=== PATIENT | male | born 1960 | race African-American/Black ===

== ENCOUNTER 2020-06-27 09:06 | Inpatient (IN) | payer OTHER ==
[~2020-06-27] VITALS: Ht 185.4 cm; Wt 116.6 kg
[~2020-06-27 09:06] MED LIST: ACCUPRIL5 MG; ATENOLOL25 MG PO; ATROVENT I0.5 MG/VIA IN; BACTRIM DS1 TAB PO; BENADRYL25 MG PO; CITALOPRAM20 MG PO; FERROUS SULF325 M1 PO; HYDROCHLORO25 MG/TAB PO; MOBIC7.5 MG PO; OMEPRAZOLE20 MG PO; PERCOCET 10/31 COMBO PO; PRAVASTATIN20 MG PO; PREDNISONE10 MG PO; PROVENTIL0.083 % IN; RANITIDINE150 M1 OR; REGLAN10 MG PO; RISPERIDONE2 MG PO; TYLENOL500 MG PO; ULTRAM50 M1 PO; ULTRAM50 MG PO; VENTOLIN HFA IN
--- NOTE | 2020-06-27 09:10 | NUR ---
PATIENT TO ROOM VIA WHEELCHAIR ACCOMPANIED BY 2 GUARDS.
--- NOTE | 2020-06-27 09:36 | NUR ---
RECIEVED REPORT FROM LILIYA
[2020-06-27 10:12] LABS: HEMATOCRIT 41.4 % (39.0-50.0); HEMOGLOBIN 13.1 g/dl (14.0-18.0); IMMATURE GRANULOCYTES 0.8 % (0.0-5.0); MEAN CELL VOLUME 87.5 fL CALC (80.0-100.0); MEAN CORPUSCULAR HGB 27.7 pG CALC (26.0-32.0); MEAN CORPUSCULAR HGB CONC 31.6 g/dL CAL (32.0-36.0); NEUT# 9.04 thou/uL (1.82-7.42); RED BLOOD COUNT 4.73 mill/uL (4.70-6.10); RED CELL DISTRI WIDTH 14.2 % (11.5-15.5); URINE BILIRUBIN - DIPSTICK NEGATIVE (NEGATIVE); URINE BLOOD DIPSTICK LARGE (NEGATIVE); URINE GLUCOSE - DIPSTICK NEGATIVE (NEGATIVE); URINE KETONE TRACE mg/dL (NEGATIVE); URINE PH 5.5 (4.5-8.0); URINE PROTEIN - DIPSTICK >=300 mg/dL (NEG-TRACE); URINE SPECIFIC GRAVITY 1.025; URINE UROBILINOGEN - DIPSTICK 0.2 E.U./dL (0.2)
[2020-06-27 10:24] LABS: URINE LEUK ESTERASE SMALL (NEGATIVE); URINE NITRITE - DIPSTICK POSITIVE (Negative)
[2020-06-27 10:25] LABS: URINE BACTERIA MODERATE hpf; URINE COLOR RED; URINE EPITHELIAL CELLS MODERATE EPI/hpf (0-FEW); URINE RBC >100 RBC/hpf (0-5)
--- NOTE | 2020-06-27 10:30 | NUR ---
BLADDER WAS SCANNED AND PT TOLERATED WELL. 63 ML NOTED AND MD NOTIFED. IRRIGATION OF BLADDER ORDERED.
[2020-06-27 10:32] LABS: ALBUMIN 3.5 g/dL (3.2-5.0); BILIRUBIN, TOTAL 0.6 mg/dL (0.0-1.4); CREATININE 1.6 mg/dL (0.7-1.3); POTASSIUM 4.3 mmol/l (3.5-5.1); TOTAL PROTEIN 6.2 g/dL (6.3-8.2)
--- NOTE | 2020-06-27 11:39 | NUR ---
BLADDER IRRIGATED WITH 210 ML OF FLUIDING USING GENTAL PUMPING MOTION. PT TOLERATED WELL. LIGHT RED URINE NOTED TO START DRAINING FROM MCCABE VERY SLOWLY. PT STATES HAVING SLIGHT PRESSURE. TIME WILL BE GIVIN FOR DRAINAGE. NOTIFIED.
[2020-06-27] MEDS ORDERED: CORRECTOL100 MG PO (11:54)
[2020-06-27] MEDS ORDERED: CEPHALEXIN500 M1 PO (11:54)
[2020-06-27] MEDS ORDERED: HYDROCO/APAP1 T10 PO (11:55)
[2020-06-27] MEDS ORDERED: VENTOLIN HF1 IN (11:55)
--- NOTE | 2020-06-27 11:56 | NUR ---
CHECKED FOR DRAINAGE, CONTINUES TO BE UNCHANGED. ATTEMPTED FOR SECOND ROUND OF IRRIGATION WITH AN ADDITIONAL 70 ML BLADDER SCANNER USED. MD AT BEDSIDE AND INSTRUCTED FOR ANOTHER MCCABE INSERTION PER UROLOGY ORDERS
--- NOTE | 2020-06-27 12:50 | NUR ---
PT RESTING ON STRETCER WATCHING TV WITH GAURDS AT BEDSIDE. CALL LIGHT WITHIN REACH. NO URINE CONTINUES TO BE NOTED IN MCCABE BAG
--- NOTE | 2020-06-27 13:30 | NUR ---
PT RESTING WATCHING TV, IV FLUIDS FLOWING PATENTLY
--- NOTE | 2020-06-27 14:27 | NUR ---
NOTIFIED DR. HASKINS RE: PT BP 138/90 AND P- 130. JONAS DRAINAGE IS RED FLUID. ALSO NO URINE OUTPUT SINCE THEY CHANGE HIS MCCABE IN ER. ORDERS RECEIVED.
--- NOTE | 2020-06-27 14:30 | NUR ---
PT RESTING WITH EYES CLOSED AND GAURDS AT BEDSIDE
--- NOTE | 2020-06-27 15:20 | NUR ---
PT TRANSPORTED TO MED SURG STABLE AND IN NO DISTRESS BY W/C WITH MILAGROS AT BEDSIDE. CARE ASSUMED TO NURSE IN MED SURG
[2020-06-27 16:02] VITALS: BP 138/90
--- NOTE | 2020-06-27 16:53 | NUR ---
ASSESSMENT DONE. PT IS A&O X3. PT DENIES PAIN. JONAS IN PLACE. DRESSING TO JONAS MODERATED BLODDY DRAINAGE AND CHANGE DRESSING. X2 GUARDS IN ROOM. PO FLUIDS PROVIDED. NO URINE IN MCCABE AT THIS TIME. PT DENIES ANY NEEDS AT THIS TIME. CALL LIGHT IN REACH.
--- NOTE | 2020-06-27 17:26 | NUR ---
NOTIFED DR. HASKINS RE: BLADDER SCAN 32ML OF URINE.
[2020-06-27 18:55] VITALS: BP 123/87
--- NOTE | 2020-06-27 18:55 | NUR ---
REPORT RECEIVED FROM TRACY AGUIAR. PT RESTING IN BED, NO S/S OF DISTRESS AT THIS TIME. WILL CONTINUE TO MONITOR.
--- NOTE | 2020-06-27 21:20 | NUR ---
PT RESTING IN BED, ALERT AND ORIENTED, RESPIRATIONS EVEN AND UNLABORED ON RA. LUNGS SOUND CLEAR/DIMINISHED. PEDAL PULSES ARE STRONG. PT DENIES ANY PAIN OR DISCOMFORT. PT HAS HAD NO URINE OUT PUT. BLADDER SCANNED 38ML IN BLADDER. JONAS DRAIN NOTEED TO BE FULL, 90CC EMPTIED INTO SPECIMEN CUP, JONAS FILLING BACK UP FAST WIRE ROPE SLING MAKER COULD EMPTY IT. GRADUATE USED TOTAL OF 680ML OUT OF JONAS DRAIN. MD TO BE NOTIFIED. CALL LEWIS WITHIN REACH WILL CONTINUE TO MONITOR.
--- NOTE | 2020-06-27 21:42 | NUR ---
NOTIFIED, NEW ORDERS OBTAINED AND TO BE CARRIED OUT.
--- NOTE | 2020-06-27 21:47 | NUR ---
NOTIFIED, NEW ORDERS OBTAINED AND TO BE CARRIED OUT.
--- NOTE | 2020-06-27 23:08 | NUR ---
SPOKE WITH GURINDER MCKINNON AT [facility], UPDATED ON PT CARE.
--- NOTE | 2020-06-28 01:23 | NUR ---
PT RESTING IN BED, NO S/S OF DISTRESS. PT DENIES ANY PAIN OR DISCOMFORT AT THIS TIME. 350ML EMPTIED FROM JONAS DRAIN.
[2020-06-28 01:38] VITALS: BP 134/71
--- NOTE | 2020-06-28 04:23 | NUR ---
PT RESTING IN BED, NO S/S OF DISTRESS
[2020-06-28 04:47] VITALS: BP 138/89
[2020-06-28 08:20] VITALS: BP 132/96
[2020-06-28] MEDS ORDERED: LOPRESSOR 550 MG/TAB PO (10:21)
[2020-06-28] MEDS ORDERED: PRAVASTATIN20 MG PO (10:22)
[2020-06-28] MEDS ORDERED: PREDNISONE10 MG PO (10:23)
[2020-06-28] MEDS ORDERED: SEROQUEL100 MG PO (10:23)
[2020-06-28 10:55] VITALS: BP 145/103
[2020-06-28 11:12] LABS: ANION GAP 9 (6-22 (CALC)); BUN 25 mg/dL (9-20); BUN/CREATININE RATIO 23 (12-20 (CALC)); CARBON DIOXIDE 25 mmol/l (22-30); CHLORIDE 102 mmol/l (95-108); CREATININE 1.1 mg/dL (0.7-1.3); GFR > 60 ML/MIN (>=60 (CALC)); GFR FOR AFR.AMER. > 60 ML/MIN (>=60 (CALC)); POTASSIUM 4.2 mmol/l (3.5-5.1); SODIUM 132 mmol/l (137-146)
--- NOTE | 2020-06-28 11:45 | NUR ---
Pt alert and oriented x4, Cj drainage, draining a large amt sero-sang drainage.Cj RUQ, SITE DRAINING SERO SANG DRAINAGE. APPIED ABD TO SITE. MCCABE NO DRAINAGE IN BAG. PATIENT HAS 2 DEPUTY AT BEDSIDE. ABD INCISION SITES DRY AND INTACT. WILL CONTINUE TO MONITOR FOR SAFETY
[2020-06-28 15:30] VITALS: BP 127/92
--- NOTE | 2020-06-28 16:43 | NUR ---
RECEIVED NEW ADMIT, PATIENT STATED THAT SHE HAD FALLEN LAST WEDS, AND SINCE THAN SHE HAS HAD PAIN IN HER LOWER BACK AND RIGHT LEG. SHE STATED THAT HER COULD NOT ASSIST HER AT HOME BECAUSE SHE WAS TO HEAVY FOR HIM. PATIENT STATED THAT SHE SMOKES A 1/2PK/DAY. C/O PAIN 10, STATED THAT THE MEDICATION GIVEN TO HER IN THE ER HELPED HER PAIN. PATIENT INSTRUCTED TO CALL FOR ASSISTNACE BEFORE GETTING OOB.
[2020-06-28 19:07] VITALS: BP 135/81
--- NOTE | 2020-06-28 19:59 | NUR ---
PT RESTING IN BED, ALERT AND ORIENTED RESPIRATIONS EVEN AND UNLABORED ON RA. LUNGS SOUND CLEAR. PEDAL PULSES ARE STRONG. PT REPORTS HAVING MODERATE PAIN IN HIS ABDOMEN, PT TO BE MEDICATED PER EMAR ORDERS. MCCABE IN PLACE. JONAS DRAIN IN PLACE. CALL LEWIS WITHIN REACH WILL CONTINUE TO MONITOR.
[2020-06-29] VITALS (11 sets, daily range): BP systolic 120–176; BP diastolic 70–96
--- NOTE | 2020-06-29 00:09 | NUR ---
PT RESTING IN BED. NO S/S OF DISTRESS AT THIS TIME.
--- NOTE | 2020-06-29 04:00 | NUR ---
PT RESTING IN BED, NO S/S OF DISTRESS AT THIS TIME. SAFETY PRECAUTIONS IN PLACE. WILL CONTINUE TO MONITOR.
[2020-06-29 05:51] LABS: ANION GAP 9 (6-22 (CALC)); BUN 19 mg/dL (9-20); BUN/CREATININE RATIO 20 (12-20 (CALC)); CARBON DIOXIDE 26 mmol/l (22-30); CHLORIDE 103 mmol/l (95-108); GFR > 60 ML/MIN (>=60 (CALC)); GFR FOR AFR.AMER. > 60 ML/MIN (>=60 (CALC)); POTASSIUM 4.2 mmol/l (3.5-5.1); SODIUM 134 mmol/l (137-146)
--- NOTE | 2020-06-29 07:06 | NUR ---
PT RESTING IN BED, NO SIGNS OF DISTRESS NOTED, RESP EVEN AND UNLABORED. INFORMED PT THAT OR TO ARRIVE TO TRANSPORT PT SHORTLY, PT VERBALIZED UNDERSTANDING. SCD'S IN PLACE, NOTED MCCABE BAG DRAINING FROM PENIS, THEN ANOTHER BAG DRAINING DARK URINE FROM JONAS DRAIN, GUARDS X2 AT BEDSIDE, DISCUSSED POC, ASSESSMENT COMPLETED, CALL LIGHT IN REACH,CONTINUE TO MONITOR.
--- NOTE | 2020-06-29 07:30 | NUR ---
PT TAKEN DOWN TO OR BY ASIA MOLINA VIA STRETCHER ACCOMPANIED BY GUARDS X2, CONTINUE TO MONITOR.
--- NOTE | 2020-06-29 10:05 | NUR ---
PT ARRIVED TO MS2 VIA STRETCHER ACCOMPANIED BY OR NURSE. PT REQUESTING TO USE THE BATHROOM, PT HAD A BM AMBULATED WITH ASSISTANCE. RETURNED TO BED, JONAS DRAINED OF 100CC OF BLOODY DRAINAGE. MCCABE DRAINING TO GRAVITY, NEW IV TO JOAQUÍN NS INFUSING. SCD'S IN PLACE. PT TOLERATING WATER. MEDICATED PER MAR. CALL LIGHT IN REACH,CONTINUE TO MONITOR, GUARDS X2 AT BEDSIDE.
--- NOTE | 2020-06-29 12:48 | NUR ---
NO OUTPUT FROM MCCABE SINCE ARRIVAL TO UNIT; BLADDER SCAN REPORTS 68ML. 40CC OF SEROSANGUINOUS DRAINAGE EMPTIED FROM JONAS DRAIN AND DRESSING OVER JONAS SITE SATURATED WITH SEROSANGUINOUS DRAINAGE. DRESSING REPLACED AND MCCABE IRRIGATED WITH 140CC OF 0.9% SODIUM CHLORIDE. IMMEDIATE AFTER FLUSH JONAS DRAIN QUICKLY FILLED WITH 85 CC OF SEROSANGUINOUS FLUID; 20 CC OF RETURN IN MCCABE CATHETER. PT TOLERATED WELL.
--- NOTE | 2020-06-29 12:57 | NUR ---
SPOKE WITH DR. MANCINI REGARDING JONAS DRAINAGE, AWARE STATES FOR SUCTION TO JONAS BE A MINIMAL, PT TO SIT IN CHAIR OR SIT UP IN BED, AND IT HELPS TO ELEVATE JONAS. DISCUSSED WITH PT WHO VERBALIZED UNDERSTANDING. MCCABE REMAINS EMPTY, JONAS WITH MINIMAL SUCTION. CALL LIGHT IN REACH,CONTINUE TO MONITOR.
--- NOTE | 2020-06-29 16:00 | NUR ---
PT RESTING IN BED, NO SIGNS OF DISTRESS NOTED, RESP EVEN AND UNLABORED. NO OUTPUT IN MCCABE, REMOVED 300CC FROM JONAS DRAIN. PT MEDICATED FOR PAIN, CALL LIGHT IN REACH, CONTINUE TO MONITOR.
--- NOTE | 2020-06-29 18:40 | NUR ---
PT C/O PAIN INFORMED MD TRANSITIONAL STUDIES INSTRUCTOR, RECEIVED 1X ORDER FOR MORPHINE, AWAITING PHARMACY TO PROFILE, CALL LIGHT IN REACH,CONTINUE TO MONITOR.
--- NOTE | 2020-06-29 20:55 | NUR ---
ONE GUARD AT BEDSIDE AT THIS TIME. 2ND GUARD OFF UNIT FLOOR. PT IS MEDICATED ORDERS PROVIDE AT THIS TIME. MEDICATED W/SEROQUIL ORDERS PROVIDE AND PER PT REQUEST. SMALL AMOUNT OF BLOODY DRAINAGE TO MCCABE CATHETER COLLECTION BAG. CATHETER LEG STRAP IS OFF THE LEG, WILL ATTEMPT TO REPLACE WITH NEW STRAP. SMALL AMOUNT OF BLOODY DISCHARGE FROM INSERTION SITE OF CATHETER ON PENIS. JONAS DRAIN BULB EMPTIED OF 300CC OF PINK URINE. BULB RETURNED TO 25% OF SUCTION. WILL CONTINUE TO MONITOR FOR OUTPUT. PT IS SITTING UPRIGHT IN BED. LEFT WITH ONE GUARD AT BEDSIDE.
--- NOTE | 2020-06-29 23:43 | NUR ---
GUARDS CALLED AND REPORTED THAT HIS MCCABE CATHETER AND JONAS DRAIN WERE LEAKING. UPON ENTERING ROOM, PT WAS FOUND IN BED AND GUARDS AT BEDSIDE. BLOODY URINE FOUND ALL OVER THE FLOOR NEXT TO THE BED AND LEADING TO RESTROOM. MYSELF AND WORSHIP PASTOR CLEANED BEST WE COULD AND CALLED HOUSEKEEPING. EMPTIED JONAS BULB OF ANY REMAINING DRAINAGE APPEARING URINE W/ORANGE TINGE. SMALL AMOUNT OF BLOODY DRAINAGE IN MCCABE CATH BAG AND CLAMP WAS UNDONE.
--- NOTE | 2020-06-30 00:35 | NUR ---
DRESSING TO JONAS DRAIN WAS SATURATED, REMOVED DRESSING AND CLEAN DRESSING APPLIED. DRAINAGE BIO BAG ATTACHED TO JPDRAIN TO COLLECT THE AMOUNT OF URINE COMING FROM JONAS DRAIN. NEW MCCABE STRAP PLACED AND BAG IS CLAMPED CLOSED AT THIS TIME. WILL CONTINUE TO MONITOR. ASSISTED PT W/NEW DRY GOWN, ICE WATER PROVIDED. GUARDS X2 AT BEDSIDE.
--- NOTE | 2020-06-30 03:38 | NUR ---
PT V/S ASSESSED AND JONAS DRAIN EMPTIED OF 400CC OF BLOODY URINE. MINIMAL AMOUNT (UNMEASURABLE) BLOODY DRAINAGE IN MCCABE OUTPUT BAG. GUARDS 2X AT BEDSIDE. PT DENIES ANY OTHER NEEDS AND WAS SLEEPING WE ENTERED.
[2020-06-30 04:20] VITALS: BP 131/85
[2020-06-30 05:46] LABS: HEMATOCRIT 36.2 % (39.0-50.0); MEAN CORPUSCULAR HGB 27.6 pG CALC (26.0-32.0); MEAN CORPUSCULAR HGB CONC 30.7 g/dL CAL (32.0-36.0); RED BLOOD COUNT 4.02 mill/uL (4.70-6.10); RED CELL DISTRI WIDTH 14.4 % (11.5-15.5)
[2020-06-30 06:03] LABS: HEMOGLOBIN 11.1 g/dl (14.0-18.0)
[2020-06-30 06:12] LABS: ANION GAP 11 (6-22 (CALC)); BUN 23 mg/dL (9-20); BUN/CREATININE RATIO 18 (12-20 (CALC)); CARBON DIOXIDE 27 mmol/l (22-30); CHLORIDE 100 mmol/l (95-108); CREATININE 1.3 mg/dL (0.7-1.3); GFR 56 ML/MIN (>=60 (CALC)); GFR FOR AFR.AMER. > 60 ML/MIN (>=60 (CALC)); MAGNESIUM 2.3 mg/dL (1.6-2.3); POTASSIUM 4.4 mmol/l (3.5-5.1); SODIUM 133 mmol/l (137-146)
--- NOTE | 2020-06-30 06:21 | NUR ---
ONE GUARD IS AT BEDSIDE. JONAS DRAIN EMPTIED OF 350CC OF PEACH COLORED DRAINAGE. PT MEDICATED FOR PAIN 6/10 ON PAIN SCALE.
--- NOTE | 2020-06-30 07:20 | NUR ---
REPORT RECEIVED FROM TRACY NARVAEZ. PT RESTING IN BED SEMI FOWLERS WITH GUARDS AT BEDSIDE AND FEET SHACKLED TOGETHER. ALERT AND ORIENTED WITH FLAT AFFECT. DENIES PAIN, BUT C/O LOWER ABDOMINAL TENDERNESS WITH PALPATION. RESPIRATIONS EVEN AND UNLABORED ON ROOM AIR. LUNGS ARE CLEAR. ABDOMEN IS DISTENDED AND FIRM; BOWEL SOUNDS ACTIVE X 4; 4 LAP SITES WITH SELINA AND DRESSING OVER JONAS INSERTION SITE; DRESSING CDI. LARGE AMOUNT OF SEROSANGUINOUS OUTPUT IN JONAS BAG. MINIMAL JERED BLOODY OUTPUT IN MCCABE CATHETER; DRAINING TO GRAVITY AND LEG STRAP INTACT TO RIGHT THIGH. TRACE PEDAL EDEMA. PLAN OF CARE REVIEWED. PT ENCOURAGED TO VERBALIZE CONCERNS. STATES UNDERSTANDING. SAFETY MEASURES IN PLACE. CALL LIGHT WITHIN REACH.
[2020-06-30 07:30] VITALS: BP 127/82
--- NOTE | 2020-06-30 08:08 | NUR ---
DR. HARDEN AT BEDSIDE FOR EVAL.
--- NOTE | 2020-06-30 11:10 | NUR ---
UPDATE GIVEN TO DR. ARANDA OVER TELEPHONE; HE MENTIONED POSSIBLE INTERVENTIONAL NEPHROLOGY. NOTIFIED DR. HARDEN AND REQUESTS HE CALL AND SPEAK WITH DR. ARANDA REGARDING POC.
--- NOTE | 2020-06-30 13:18 | NUR ---
350ML EMPTIED FROM BILE BAG ATTACHED TO JONAS TUBING; BAG WAS EXPANDED ALSO WITH AIR. DRESSING TO INSERTION SITE CHANGED; MODERATE AMOUNT OF DRAINAGE TO DRESSING. WHEN AYAZ CLEAR FLUID ACTIVELY LEAKS FROM SITE. LORTAB GIVEN FOR 8 HEADACHE. GUARDS REMAIN AT BEDSIDE. NO OUTPUT TO MCCABE.
[2020-06-30 15:08] VITALS: BP 124/83
--- NOTE | 2020-06-30 16:25 | NUR ---
DRESSING TO JONAS INSERTION SITE WITH MODERATE YELLOW DRAINAGE; DRESSING REPLACED. 225ML OF ORANGE CLEAR DRAINAGE FROM JONAS DRAIN; 15 ML OF BLOODY OUTPUT FROM MCCABE. PT TOLERATED WELL. PT AMBULATING TO BATHROOM FOR BOWEL MOVEMENTS. NO REQUESTS OR CONCERNS AT THIS TIME. 2 GUARDS REMAIN AT BEDSIDE. CALL LIGHT WITHIN REACH.
--- NOTE | 2020-06-30 16:46 | NUR ---
KEM AT [facility] UPDATED ON ORDERS FROM DR. ARANDA.
--- NOTE | 2020-06-30 18:28 | NUR ---
LORTAB GIVEN FOR 6/10 ABDOMINAL PAIN. ADDITIONAL 275ML OF ORANGE URINE EMPTIED FROM JONAS DRAIN DUE TO PYRIDIUM. MINIMAL YELLOW DRAINAGE NOTED TO DRESSING. PT UPDATED THAT HE WILL STAY ANOTHER NIGHT IN HOSPITAL FOR OBSERVATION. ALSO UPDATED ON POC TO GO TO [facility] THIS WEEK FOR PLACEMENT OF BILATERAL NEPHROSTOMY TUBES. IV SITE APPEARS HEALTHY AND FLUSHES. CALL LIGHT WITHIN REACH.
[2020-06-30 18:48] VITALS: BP 136/93
--- NOTE | 2020-06-30 20:23 | NUR ---
PT MEDICATED AND ASSESSMENT COMPLETED AT THIS TIME. JONAS DRAIN EMPTIED OF 250CC OF ORANGE CLEAR URINE. SMALL AMOUNT OF BLOODY DRAINAGE TO MCCABE BAG. INCISIONS X4 TO ABD W/SELINA APPEAR HEALTHY. DRESSING TO ABD JONAS DRAIN INSERTION SITE APPEARS CDI. WILL CONTINUE TO MONITOR. GUARDS X2 AT BEDSIDE.
[2020-06-30 23:53] VITALS: BP 119/74
--- NOTE | 2020-07-01 02:25 | NUR ---
JONAS DRAIN EMPTIED OF 350CC OF ORANGE URINE. MCCABE BAG APPEARS TO BE DRAINING SLIGHTLY MORE URINE AT THIS TIME, WILL EMPTY AND MEASURE IN AM. PT SLEEPING SOUNDLY, AWOKE TO MY VOICE, BUT QUICKLY RETURNED TO SLEEP. GUARDS X2. SMALL AMOUNT OF DRAINAGE TO ABD DRESSING, WILL REASSESS AND CHANGE NEEDED WHEN ASSESSING V/S AND LAB DRAWS AND PT IS AWAKE.
[2020-07-01 03:40] VITALS: BP 106/63
[2020-07-01 04:56] LABS: HEMATOCRIT 34.9 % (39.0-50.0); HEMOGLOBIN 10.9 g/dl (14.0-18.0); IMMATURE GRANULOCYTES 1.9 % (0.0-5.0); MEAN CELL VOLUME 89.5 fL CALC (80.0-100.0); MEAN CORPUSCULAR HGB 27.9 pG CALC (26.0-32.0); MEAN CORPUSCULAR HGB CONC 31.2 g/dL CAL (32.0-36.0); NEUT# 4.71 thou/uL (1.82-7.42); RED BLOOD COUNT 3.9 mill/uL (4.70-6.10); RED CELL DISTRI WIDTH 14.5 % (11.5-15.5)
[2020-07-01 05:21] LABS: ANION GAP 10 (6-22 (CALC)); BUN 17 mg/dL (9-20); BUN/CREATININE RATIO 17 (12-20 (CALC)); CARBON DIOXIDE 27 mmol/l (22-30); CHLORIDE 100 mmol/l (95-108); GFR > 60 ML/MIN (>=60 (CALC)); GFR FOR AFR.AMER. > 60 ML/MIN (>=60 (CALC)); POTASSIUM 4.2 mmol/l (3.5-5.1); SODIUM 133 mmol/l (137-146)
--- NOTE | 2020-07-01 05:25 | NUR ---
JOANS DRAIN EMPTIED OF 200CC OF ORANGE URINE. MCCABE CATH BAG EMPTIED OF 50CC OF BLOODY DRAINAGE. PT DENIES PAIN AT THIS TIME. GUARDS X2 AT BEDSIDE.
--- NOTE | 2020-07-01 06:10 | NUR ---
DRESSING CHANGED TO JONAS DRAIN INSERTION SITE. CLEAR FLUID IS DRAINING FROM SITE. PT TOLERATED WELL. GUARDS X2 AT BEDSIDE TALKING ABOUT THE TV NEWS.
[2020-07-01 07:21] VITALS: BP 126/83
--- NOTE | 2020-07-01 07:23 | NUR ---
REPORT RECEIVED FROM TRACY NARVAEZ. PT RESTING IN BED SEMI FOWLERS ON LEFT SIDE; ALERT AND ORIENTED X 3. GUARDS AT BEDSIDE. DENIES PAIN CURRENTLY. RESPIRATIONS EVEN AND UNLABORED ON ROOM AIR. JONAS DRAIN WITH MINIMAL DRAINAGE WELL MCCABE. LAP SITES APPEAR HEALHTY; ABDOMEN DISTENDED AND FIRM. PLAN OF CARE REVIEWED INCLUDING PLAN TO DISCHARGE BACK TO [facility]. PT ENCOURAGED TO VERBALIZE CONCERNS. STATES UNDERSTANDING. SAFETY MEASURES IN PLACE. CALL LIGHT WITHIN REACH.
--- NOTE | 2020-07-01 08:09 | NUR ---
DR. HARDEN AT BEDSIDE.
[2020-07-01 08:59] VITALS: BP 126/83
--- NOTE | 2020-07-01 09:22 | NUR ---
LINENS WITH LARGE AMOUNT OF URINE; MCCABE CATHETER AND JONAS DRAIN CHECKED FOR LEAKS; EVERYTHING INTACT AND FUNCTIONING. PT AMBULATED TO BATHROOM AND ALL LINENS CHANGED; PT WASHED HIMSELF INDEPENDENLTY WITH SUPERVISION. NOW AGAIN RESTING SEMI FOWLERS. ROCEPHIN INFUSING AT THIS TIME; IV SITE APPEARS HEALTHY AND FLUSHES.
[2020-07-01] MEDS ORDERED: KEFLEX500 MG PO (10:10)
--- NOTE | 2020-07-01 10:25 | NUR ---
SPOKE WITH RN AT [facility] MEDICAL [facility]; REPORT GIVEN.
--- NOTE | 2020-07-01 12:06 | NUR ---
JONAS DRAIN EMPTIED OF 125 ML DARK YELLOW URINE; MCCABE EMPTIED OF 20 ML BLOODY URINE. DRESSING TO JONAS INSERTION SITE REPLACED AND NOW CDI. LORTAB GIVEN FOR 6/10 ABDOMINAL PAIN. IV SITE TO JOAQUÍN REMOVED; CATHETER TIP INTACT; PT TOLERATED WELL. PT EAGER TO DISCHARGED. GUARDS ASSISTING PATIENT INTO [facility] JUMP SUIT.
--- NOTE | 2020-07-01 12:13 | NUR ---
Discharge instructions given. Patient verbalizes understanding of same. Discharged in stable condition via Wheelchair to [facility] with 2 guards and medsurg staff member. All belongings sent with pt. Updated report called to Lorenzo in [facility] medical department.
== END 2020-07-01 12:09 | disposition designated cancer center or children's hospital (05) | DRG 700 ==
LOC: ED 09:06 → ED-I 12:38 → ED 13:46 → MS2 13:47
PROVIDERS: Family Medicine; Nurse Practitioner; ADMIT Internal Medicine; ATTEND Internal Medicine
PROC: 0T2BX0Z Change Drainage Device in Bladder, External Approach (ICD-10-PCS; principal; 2020-06-27)
PROC: BT0 Imaging, Urinary System, Plain Radiography (ICD-10-PCS; 2020-06-27)
PROC: BT0B1ZZ Plain Radiography of Bladder and Urethra using Low Osmolar Contrast (ICD-10-PCS; 2020-06-29)
PROC: 0T9B70Z Drainage of Bladder with Drainage Device, Via Natural or Artificial Opening (ICD-10-PCS; 2020-06-29)
DX: N99.81 Other intraoperative complications of genitourinary system (principal); N30.81 Other cystitis with hematuria; N28.9 Disorder of kidney and ureter, unspecified; E86.0 Dehydration; C61 Malignant neoplasm of prostate; I10 Essential (primary) hypertension; J44.9 Chronic obstructive pulmonary disease, unspecified; E78.5 Hyperlipidemia, unspecified; K21.9 Gastro-esophageal reflux disease without esophagitis; Y83.6 Removal of other organ (partial) (total) as the cause of abnormal reaction of the patient, or of later complication, without mention of misadventure at the time of the procedure; Z90.79 Acquired absence of other genital organ(s); Z11.59 Encounter for screening for other viral diseases
CPT/HCPCS: C1769; J1100; Q9967